=== PATIENT | male | born 1950 | race Caucasian/White ===

== ENCOUNTER 2019-05-25 00:55 | Outpatient (CLI) | payer OTHER, SELFPAY ==
[2019-05-25 09:26] LABS: Hemoglobin A1C 5.8 % (4.5-6.2)
[2019-05-25 09:36] LABS: Bilirubin Negative (Negative); Blood Negative (Negative); Clarity Clear (Clear); Glucose Negative (Negative); Ketones Negative (Negative); Leukocyte Esterase Negative (Negative); Nitrite Negative (Negative); Urobilinogen 0.2 EU/dL (Up TO 0.2); pH 7.5 (5-8)
[2019-05-25 10:10] LABS: ALT 31 U/L (16-63); AST 18 U/L (15-37); Albumin 3.9 g/dL (3.4-5.0); Alkaline Phosphatase 103 U/L (46-116); Anion Gap 8.3 mmol/L (3-11); BUN 16 mg/dL (7-18); Bilirubin, Total 0.6 mg/dL (0.2-1.0); CO2 26.7 mmol/L (21.0-32.0); CREATININE 0.68 mg/dL (0.70-1.30); Calcium 8.7 mg/dL (8.5-10.1); Chloride 106 mmol/L (98-107); Glucose 99 mg/dL (70-100); Potassium 4.5 mmol/L (3.5-5.1); Sodium 141 mmol/L (136-145); TSH 1.98 uIU/mL (0.36-3.74); Total Protein 6.6 g/dL (6.4-8.2); Uric Acid 4.9 mg/dL (3.5-7.2)
[2019-05-25 12:21] LABS: Calculated LDL 104 mg/dL; Cholesterol 173 mg/dL (50-200); HDL Cholesterol 54 mg/dL (40-60); Triglyceride 75 mg/dL (30-150)
[2019-05-25 14:31] LABS: Abs Immature Grans 0.07 k/cumm (0.0-0.09); Absolute Basophil Count 0.04 k/cumm (0.0-0.2); Absolute Eosinophil Count 0.11 k/cumm (0.0-0.7); Absolute Monocyte Count 0.67 k/cumm (0.11-0.7); Absolute Neutrophil Count 3.03 k/cumm (1.2-6.7); Basophils % 0.7; HCT 47.4 % (40.0-50.0); HGB 15.6 g/dL (13.5-17.5); Immature Grans % 1.3; Mean Corp. HGB Concentration 32.9 g/dL (32.0-36.0); Mean Corpuscular Hemoglobin 27.9 pg (27.0-33.0); Mean Corpuscular Volume 84.6 fL (80-95); Mean Platelet Volume 9.8 fL (8.0-11.0); Monocytes % 12.1; Neutrophils % 54.9; Platelet Count 284 x1000/uL (130-400); RBC Distribution Width 13.8 % (11.8-14.1); White Blood Cell Count 5.52 k/cumm (4.4-10.8)
[2019-05-26 12:16] LABS: PSA, Screening 2.2 ng/ml (0-4.5)
[2019-05-30 08:37] LABS: IgA 156 mg/dL (85-499); Interpretation SEE COMMENTS; Tissue Transglutaminase IgA <1.2 U/mL (<4.0)
== END 2019-05-25 01:15 ==
PROVIDERS: PCP Family Medicine; Visit Provider Family Medicine
DX: I10 Essential (primary) hypertension (principal); K52.9 Noninfective gastroenteritis and colitis, unspecified; E03.9 Hypothyroidism, unspecified; N13.8 Other obstructive and reflux uropathy; N40.1 Benign prostatic hyperplasia with lower urinary tract symptoms; E78.00 Pure hypercholesterolemia, unspecified; Z87.39 Personal history of other diseases of the musculoskeletal system and connective tissue; R73.03 Prediabetes; R39.11 Hesitancy of micturition
CPT/HCPCS: 36415; 80053; 80061; 82784; 83516; 84153; 81003; 83036; 84443; 84550; 85025

== ENCOUNTER 2019-05-29 07:00 | Outpatient (CLI) | payer OTHER, SELFPAY ==
[2019-05-31 13:31] LABS: Milk, Processed, IgE <0.35 kU/L
== END 2019-05-29 07:20 ==
PROVIDERS: PCP Family Medicine; Visit Provider Surgery
DX: R19.7 Diarrhea, unspecified (principal)
CPT/HCPCS: 36415; 86003

== ENCOUNTER 2019-06-09 03:02 | Outpatient (CLI) | payer OTHER, SELFPAY ==
--- NOTE | 2019-06-09 08:40 | DI.US_ITS ---
EXAM: US ABDOMEN CLINICAL HISTORY: abdom pain/ gas bloating/ diarrhea,R19.7,R10.9 TECHNIQUE: Ultrasound performed using standard protocol. COMPARISON: No exams were available for comparison FINDINGS: Visualized liver is normal in appearance. No evidence of cholelithiasis or biliary dilatation. Panc reas is unremarkable in appearance. Spleen appears normal. Aorta and IVC are of normal diameter. Kidneys are unremarkable in appearance except for a 5.5 cm in diameter upper pole right renal simple cyst. No hydronephrosis or nephrolithiasis. IMPRESSION: Negative abdominal ultrasound except for incidental right renal cyst which is a simple cyst.
== END 2019-06-09 03:22 ==
PROVIDERS: PCP Family Medicine; Visit Provider Surgery
DX: R10.9 Unspecified abdominal pain (principal); R19.7 Diarrhea, unspecified; R14.0 Abdominal distension (gaseous); N28.1 Cyst of kidney, acquired
CPT/HCPCS: 76700

== ENCOUNTER 2019-06-23 06:50 | Day surgery (SDC) | payer OTHER, SELFPAY ==
--- NOTE | 2019-06-22 19:17 | W.COLOREPORT ---
Date of service: 06/23/19 Time of Service: 10:36 Colonoscopy Report Date of procedure: 06/23/19 Pre-op diagnosis general: screen Post-op diagnosis procedure note: other (polyps and divertic ) Procedure: ce and polypectomy x2- cold Surgeon: Natasha Jarrell Anesthesia proc note operative: GETA Estimated blood loss (mL): 1 Pathology: other Complications: None Disposition: same day Prep: Miralax/Dulcolax Retraction Time: 12 mins Procedure Description: INDICATIONS: The patient is here today at the request of their PCP and is here today for a colonoscopy for CRC screen . Informed consent was obtained, explaining the risks and benefits of the procedure, including but not limited to bleeding, infection, perforation, aspiration, complications from the anesthesia. DESCRIPTION OF PROCEDURE: The patient was brought to the endoscopy suite and placed in left lateral decubitus position. Anesthesia was administered per the Department of Anesthesia, with constant monitoring of all vital signs. Digital rectal exam was performed prior to beginning the procedure and revealed no anal or rectal pathology. There was good sphincter tone. No internal or external hemorrhoids are noted. The previously lubricated Olympus was inserted in the rectum and insufflation was begun. The scope was passed up through the recto-sigmoid valves, through the sigmoid and transverse, down the ascending and the cecum was achieved at 90 cm. Good prep was noted. The scope was then withdrawn. There were no AVM,s. polyps were: One at 70 cm/ascending colon w/ cold biting forcep and one in rectum removed with cold biting forcep. All specimens retrieved, & no bleeding is noted. Patient does have a few small large most diverticuli these are mostly confined to the sigmoid colon but they do extend all the way over to the right side of the colon. There is no signs of active infection the mucosa appears pink and healthy. The vasculature appears normal. The patient tolerated the procedure without complicated and transferred to the recovery room in stable condition. Colonoscopy should be repeated in 5-10 years? time- path pd. A letter will be sent to the pt as to when to repeat the scope. Natasha Jarrell, DO
[2019-06-23 07:37] VITALS: BP 136/83; PULSE 66; RESP 16; TEMP 36.4; O2SAT 96
[2019-06-23] MEDS: Lactated Ringers 1,000 ML 100 ML IV (08:00)
--- NOTE | 2019-06-23 09:51 | SUR.INTRAOP ---
Dr. Jarrell delayed due to post-op ICU patient needing orders and consults.
--- NOTE | 2019-06-23 10:14 | BOWEL_PTH ---
PATIENT: John Perry I LOC: [facility] U#:[id number] AGE/SX: 68/M ROOM: RE06/23/[address]: Natasha Jarrell : 1950 BED: DIS: 06/23/2019 SPEC #: [id number] RECD: 06/23/19 13:06 STATUS: ALEC RE #: [id number] KAITLIN: 06/23/19 10:[address]: Natasha Jarrell DEPT: Surgical Specimen RECD BY: Raegan Lopez ENTERED: 06/23/19 13:08 SP TYPE: Bowel OTHR DR: Linus Waite MD Tissues: 1 - BIOPSY BOWEL 2 - BIOPSY BOWEL Procedures: GROSS AND MICRO LEVEL 4 Comments: [id number]
--- NOTE | 2019-06-23 10:47 | W.PM.DSUDISC ---
Discharge Plan Disposition Patient Disposition: HOME Condition: Good Discharge Details Reason For Visit: CRC screen Attending Provider: Natasha Jarrell Primary Care Provider: Linus Waite Home Meds and New Rx's Prescriptions: No Action levothyroxine 150 mcg tablet 150 mcg PO DAILY RF: 0 tamsulosin [Flomax] 0.4 mg capsule 0.4 mg PO QHS Qty: 30 RF: 11 lisinopril 10 MG tablet 10 mg PO DAILY RF: 0 omeprazole [Prilosec] 20 MG capsule,delayed release(DR/EC) 20 mg PO DAILY RF: 0 Discharge Instructions Instructions: Diverticulosis (GEN), Diverticulosis Diet (GEN) Additional Instructions: Findings:diverticula- follow high fiber diet and avoid straining to move bowels x2 polyps- will send a letter w/ pathology results and when to repeat scope- in approx 3 wks. try lactaid for diary induced diarrhea. no asa/nsaid's x72 hrs b/c of Biopsy. tylenol is ok. Follow up: as needed Please call if you develop: fevers >101.5 Nausea or Vomiting Abdominal pain that is not transient DAY SURGERY UNIT POST COLONOSCOPY INSTRUCTIONS 1. Because there will be medication in your system for the next 24 hours, you may feel a little sleepy. Your coordination will be affected. Therefore: a. Do not drive or operate dangerous equipment for 24 hours. b. Do not drink alcohol beverages for 24 hours (not even beer). c. Plan to go home and rest for the day. 2. Generally there are no restrictions on your activity after a day or so has gone by, but you may feel a bit fatigued for a few days. 3 After you arrive home you may have a light meal and return to a normal diet as you can tolerate it without feeling sick to your stomach. 4. After surgery, you may feel pain or discomfort. This should be only transient, but if it persists please contact your doctor. 5. If there are any questions regarding the findings of your procedure, please feel free to contact your doctor. 6. If you are unable to contact your doctor with a problem, contact the hospital at [phone]. 7. Continue all your regular medications unless directed otherwise. I understand the above instructions and have no questions. Signature of Patient or Responsible Adult Escort Date/Time Name of Responsible Adult Escort Signature of Nurse Date/Time Activity:: no lifting over 20#/strenuous activity x 24hrs Diet:: small light meals x 24 hrs Discharge Orders Discharge Orders: Discharge Order (Routine); Ordered 06/22/19 Ordered By: Natasha Jarrell DS: Diagnosis Discharge Diagnosis (1) Adenomatous polyps: Status: Acute (2) Diverticula of colon: Status: Acute
[2019-06-23 11:00] VITALS: BP 134/84; PULSE 64; RESP 16; TEMP 36.2; O2SAT 95
== END 2019-06-23 11:29 | disposition home or self-care (01) ==
PROVIDERS: PCP Family Medicine; Visit Provider Surgery
PROC: 0DJD8ZZ Inspection of Lower Intestinal Tract, Via Natural or Artificial Opening Endoscopic (ICD-10-PCS; CPT 45378; principal; 2019-06-23 08:30)
DX: R19.4 Change in bowel habit (principal); Z86.010 Personal history of colon polyps; G47.33 Obstructive sleep apnea (adult) (pediatric); D12.8 Benign neoplasm of rectum; D12.2 Benign neoplasm of ascending colon; K57.30 Diverticulosis of large intestine without perforation or abscess without bleeding
CPT/HCPCS: 45380; 88305

== ENCOUNTER 2019-07-25 09:54 | Day surgery (SDC) | payer OTHER, SELFPAY ==
[2019-07-25 10:13] VITALS: BP 142/94; PULSE 67; RESP 16; TEMP 36.4; O2SAT 94
[2019-07-25] MEDS: Lidocaine 2% Multi-Dose 50 ML VIAL (11:21)
--- NOTE | 2019-07-25 11:30 | PDOC.DSDIS_ITS ---
Discharge Plan Disposition Patient Disposition: HOME Condition: Good Discharge Details Reason For Visit: RMF Trigger Attending Provider: David Lopez Primary Care Provider: Linus Waite Home Meds and New Rx's Prescriptions: New hydrocodone-acetaminophen 5-325 mg tablet 1 tab PO Q6H PRN (Reason: pain) Qty: 7 RF: 0 No Action tamsulosin [Flomax] 0.4 mg capsule 0.4 mg PO QHS Qty: 30 RF: 11 levothyroxine 150 mcg tablet 150 mcg PO DAILY Qty: 90 RF: 3 lisinopril 10 mg tablet 10 mg PO DAILY Qty: 90 RF: 3 omeprazole 20 mg capsule,delayed release(DR/EC) 20 mg PO DAILY Qty: 90 RF: 3 Discharge Instructions Additional Instructions: Bend and straighten fingers R hand 10 times/hour when awake. to prevent swelling. Keep dressings clean and dry for 48 hours. After 48 hours, remove dressings. May then shower or bathe and get incision wet. Leave incision uncovered when it is dry and sealed. Follow up with in 2 weeks. Referrals: David Lopez MD [ [facility] STAFF PHYSICIAN] - (f/u in 2 weeks.) Activity:: Activity as Tolerated Remove Dressings/Wound Care:: 48 hours Shower/Bathe:: 48 hours Diet:: As Tolerated Discharge Orders Discharge Orders: Discharge Order (Routine); Ordered 07/25/19 Ordered By: David Lopez DS: Diagnosis Discharge Diagnosis (1) Trigger finger (acquired): Status: Acute
--- NOTE | 2019-07-26 09:23 | ROE_ITS ---
DATE OF PROCEDURE July 25, 2019 PREOPERATIVE DIAGNOSIS Trigger right middle finger. POSTOPERATIVE DIAGNOSIS Trigger right middle finger. PROCEDURE Tendon sheath incision for trigger finger release, right middle finger. ANESTHESIA Local infiltration 2% Xylocaine solution and 0.5% Marcaine with epinephrine solution. SURGEON David Lopez M.D. INDICATIONS This is a 68-year-old white male with painful locking and catching of his right middle finger. This h as been present for several months without resolution. It is quite painful for him. I recommended tri gger finger release to alleviate his symptoms and restore good function to his right middle finger. The risk and complications of the procedure were explained to the patient in detail preoperatively. PROCEDURE The patient was taken to the Operating Room on 07/25/2019, where he was placed supine on the operatin g table. The right hand, wrist and distal forearm were prepped and draped free in usual sterile fash ion. I infiltrated over the proximal delta of the flexor sheath of the right middle finger with 2% X ylocaine solution. I then made a transverse incision about 2 cm long over the proximal delta of the flexor sheath of the right middle finger. The incision was positioned 5 mm distal to the distal donahue r flexion crease. The incision was carried down through the skin to the subcu. Blunt tip Littler scis sors were the used to mobilize soft tissue away from the flexor sheath. Retractors were inserted. Und er direct vision, I incised the thickened proximal delta of the flexor sheath. I then used Littler s cissors to complete the tendon sheath incision proximally and distally. When I thought I had complete d the full release of the proximal delta, I asked the patient to actually flex and extend his right middle finger. He is now able to flex and extend his right middle finger fully without any triggering or catching. The wound was irrigated with saline solution. The wound margins were infiltrated with 0 .5% Marcaine with epinephrine solution. Hemostasis was obtained with simple direct pressure. The skin edges were approximated with two interrupted #4-0 Nylon sutures. The wound was dressed with Xeroform gauze, sterile gauze, 4x4s and wrapped with a 2-inch cling bandage for a light pressure dressing. Th e patient tolerated the procedure well and was discharged to the Day Surgery Unit in good condition. The patient was discharged home from Day Surgery Unit with instructions to keep his dressing clean an d dry for 48 hours. He is encouraged to flex and extend the fingers of his right hand 10 times an yony r while awake to prevent swelling and decreased discomfort. After 48 hours, he may remove the dressin gs, shower, bathe and get the incision wet. He can leave the incision uncovered when the incision is dry and sealed. He will take Tylenol or ibuprofen for mild pain. He is given a prescription for break through pain of hydrocodone with APAP 5/325, 1 tablet every 6 hours if needed. He should followup tr Lopez in two weeks for suture removal.
== END 2019-07-25 11:55 | disposition home or self-care (01) ==
PROVIDERS: PCP Family Medicine; Visit Provider Orthopaedic Surgery
PROC: (CPT 26055; principal; 2019-07-25 11:15)
DX: M65.331 Trigger finger, right middle finger (principal)
CPT/HCPCS: 26055

== ENCOUNTER 2019-12-20 14:10 | Outpatient (CLI) | payer OTHER, SELFPAY ==
--- NOTE | 2019-12-20 14:08 | DI.RAD_ITS ---
EXAM: XR SHOULDER RT COMPLETE 2+V CLINICAL HISTORY: SHOULDER PAIN R. TECHNIQUE: 2D digital imaging was performed. COMPARISON: No exams were available for comparison FINDINGS: BONES: No acute fracture is present. No bony destructive lesion is seen. Mild spurring is seen of the glenoid. JOINTS: No dislocation present. Mild hypertrophic changes are seen at the acromioclavicular joint. SOFT TISSUE: Normal. IMPRESSION: Degenerative changes of the right shoulder. DATA REPOSITORY: RADIATION DOSE DELIVERED:
== END 2019-12-20 14:30 ==
PROVIDERS: PCP Family Medicine; Referring Provider Family Medicine; Visit Provider Student in an Organized Health Care Education/Training Program
DX: M25.511 Pain in right shoulder (principal); M19.011 Primary osteoarthritis, right shoulder
CPT/HCPCS: 73030

== ENCOUNTER 2020-01-04 11:47 | Outpatient (CLI) | payer OTHER, SELFPAY ==
--- NOTE | 2020-01-04 14:30 | DI.MRI_ITS ---
EXAM: MR UPPER JOINT RT WO CLINICAL HISTORY: RIGHT SHOULDER PAIN M25.511, BURSITIS RT SHOULDER M75.51, S46.011A STRAIN. TECHNIQUE: Multiplanar multisequence MRI was performed. COMPARISON: CR XR SHOULDER RT COMPLETE 2+V from 12/20/2019 FINDINGS: MR examination of the shoulder was performed according to the usual protocol. No significant shoulder joint effusion seen. Bones: There are prominent hypertrophic changes at the acromioclavicular joint with signal abnormalit ies of the adjacent bones. There is abnormal signal adjacent to the supraspinatus insertion in the greater tuberosity of the hum erus with cystic areas and areas of non-cystic increased signal also seen. Acromioclavicular hypertrophic changes appear to impinge on superior aspect of supraspinatus tendon a nd myotendinous junction region with significant deformity of the superior supraspinatus contour. Labrum: Some labral fraying may be present anteriorly. Otherwise grossly intact by non contrast crit eria. Rotator cuff: As noted above, there is evidence of impingement on superior aspect of supraspinatus me chanism by AC joint hypertrophy. There is mild narrowing of the acromial outlet. There are areas of signal loss in supraspinatus tendon probably representing calcification as present on plain film of December 19. There are superior surface and inferior surface partial-thickness tears of supraspinatus t endon adjacent to and at the footprint on the greater tuberosity of the humerus. A small focal area o f full-thickness tearing also appears to be present in the mid to anterior footprint without evidence of significant retraction. Abnormal signal in subscapularis tendon consistent with tendinosis, small Romy attachment partial-thi ckness intrasubstance tear may be present as seen on axial images. Infraspinatus tendon shows mild signal changes distally consistent with tendinosis, no tear of infra spinatus or teres minor. Biceps tendon: Biceps anchor shows mildly abnormal signal. No evidence of a biceps tendon tear or di splacement from the bicipital groove. IMPRESSION: Marked supraspinatus impingement from prominent AC joint hypertrophic changes, mixed partial thicknes s/full-thickness non retracted distal supraspinatus tear, please see above discussion. Subscapularis tendinosis and probable Romy attachment partial-thickness tear. Additional minor findings as described above. DATA REPOSITORY:
== END 2020-01-04 12:07 ==
PROVIDERS: PCP Family Medicine; Visit Provider Student in an Organized Health Care Education/Training Program
DX: M25.511 Pain in right shoulder (principal); M75.51 Bursitis of right shoulder; M75.41 Impingement syndrome of right shoulder; S46.011A Strain of muscle(s) and tendon(s) of the rotator cuff of right shoulder, initial encounter; M75.81 Other shoulder lesions, right shoulder
CPT/HCPCS: 73221

== ENCOUNTER 2020-06-21 16:54 | Outpatient (CLI) | payer OTHER, SELFPAY ==
[2020-06-21 13:55] LABS: ALT 38 U/L (16-63); AST 23 U/L (15-37); Albumin 4.4 g/dL (3.4-5.0); Alkaline Phosphatase 98 U/L (46-116); Anion Gap 4.9 mmol/L (3-11); BUN 17 mg/dL (7-18); Bilirubin, Total 0.7 mg/dL (0.2-1.0); CO2 30.1 mmol/L (21.0-32.0); CREATININE 0.84 mg/dL (0.70-1.30); Calcium 9.3 mg/dL (8.5-10.1); Chloride 104 mmol/L (98-107); Glucose 91 mg/dL (74-106); Potassium 4.5 mmol/L (3.5-5.1); Sodium 139 mmol/L (136-145); TSH 8.15 uIU/mL (0.36-3.74); Total Protein 7.2 g/dL (6.4-8.2)
== END 2020-06-21 17:14 ==
PROVIDERS: PCP Family Medicine; Visit Provider Family Medicine
DX: I10 Essential (primary) hypertension (principal); E03.9 Hypothyroidism, unspecified
CPT/HCPCS: 36415; 80053; 84443

== ENCOUNTER 2020-07-12 20:50 | Outpatient (REF) | payer OTHER, SELFPAY | END 2020-07-12 21:10 | LOC: LBN 20:50 | PROVIDERS: PCP Family Medicine; Visit Provider Physician Assistant | DX: N39.0 Urinary tract infection, site not specified (principal) | CPT/HCPCS: 87086 ==

== ENCOUNTER 2020-08-24 03:04 | Outpatient (CLI) | payer OTHER, SELFPAY ==
--- NOTE | 2020-08-24 13:30 | DI.CT_ITS ---
EXAM: CT LUMBAR SPINE SI JOINTS WO CLINICAL HISTORY: Acute back pain lasting 3 months,M54.5. TECHNIQUE: Imaging Protocol: Axial computed tomography images with coronal and sagittal reformatted images were created and reviewed COMPARISON: CT CTA THORAX from 06/15/2015 FINDINGS: Bones: The last intervertebral disc space is designated the L5/S1 level for the numbering purpose of this examination. The vertebral body heights are well maintained. Grade 1 pseudo spondylolisthesis o f L4 on L5. No fracture is seen. There is disc space narrowing at L5-S1. Vacuum discs are seen at L2 -L3 and L5-S1. There are degenerative changes of the facets from L3-4 through L5-S1. Endplate osteo phytes are seen throughout the lumbar spine. T12-L1: No disc herniations or bulges are present. No significant central spinal canal or neural for aminal stenosis. L1-2: No disc herniations or bulges are present. No significant central spinal canal or neural doug inal stenosis. L2-3: There is prominence of the osteophyte disc complex. This in conjunction with the facet arthrop athy causes mild to moderate central spinal canal stenosis. Mild narrowing of the neural foramen is s een bilaterally. L3-4: There is prominence of the osteophyte disc complex. This, in conjunction with facet arthropath y, causes moderately severe central spinal canal stenosis. [id number] bilateral neural foramina l stenosis is present. L4-5: There is anterolisthesis and hypertrophic changes of the facets which cause marked central spi nal canal stenosis. Bilateral neural foraminal stenosis is present. L5-S1: There is a mild diffuse disc bulge. No significant central spinal canal stenosis is present. Marked bilateral neural foraminal stenosis is present. Soft Tissues: The visualized SI joints and sacrum are will maintained. The paraspinal soft tissues a re unremarkable. A cyst is seen in the superior pole of the right kidney which was present on the elmo or examination. IMPRESSION: Multilevel degenerative changes in the lumbar spine causing central spinal canal and neural foraminal stenosis as described above. The findings are most marked from L3-4 through L5-S1. RADIATION DOSE DELIVERED: 654.85mGy.cm Total DLP 654.85mGy.cm Total DLP DATA REPOSITORY: All CT scans at this facility are submitted to the National Radiology Data Registry (NRDR) Dose Index Registry (DIR) with the [employer] ([employer]). RADIATION OPTIMIZATION: All CT scans at this facility use at least one of these dose optimization te chniques: automated exposure control; mA and/or kV adjustment per patient size (includes targeted exa ms where dose is matched to clinical indication); or iterative reconstruction.
== END 2020-08-24 03:24 ==
PROVIDERS: PCP Family Medicine; Visit Provider Nurse Practitioner Family
DX: M47.816 Spondylosis without myelopathy or radiculopathy, lumbar region (principal); M48.061 Spinal stenosis, lumbar region without neurogenic claudication; M48.07 Spinal stenosis, lumbosacral region
CPT/HCPCS: 72131

== ENCOUNTER 2020-09-05 03:21 | Outpatient (CLI) | payer OTHER, SELFPAY ==
[2020-09-06 14:04] LABS: COVID-19 RT-PCR UVMMC Result Negative (Negative)
== END 2020-09-05 03:22 | disposition home or self-care (01) ==
PROVIDERS: PCP Family Medicine; Visit Provider Family Medicine
DX: Z20.822 Contact with and (suspected) exposure to COVID-19 (principal)
CPT/HCPCS: U0003

== ENCOUNTER 2020-09-24 21:16 | Outpatient (REF) | payer OTHER, SELFPAY ==
[2020-09-24 22:20] LABS: PSA, Screening 1.5 ng/mL (0.0-4.5)
== END 2020-09-24 21:17 | disposition home or self-care (01) ==
LOC: LBN 21:16
PROVIDERS: PCP Family Medicine; Visit Provider Surgery
DX: N13.8 Other obstructive and reflux uropathy (principal); N40.1 Benign prostatic hyperplasia with lower urinary tract symptoms; Z12.5 Encounter for screening for malignant neoplasm of prostate
CPT/HCPCS: 84153

== ENCOUNTER 2021-03-25 16:06 | Outpatient (REF) | payer OTHER, SELFPAY ==
[2021-03-25 21:45] LABS: Anion Gap 10.2 mmol/L (3-11); BUN 18 mg/dL (7-18); CO2 25.8 mmol/L (21.0-32.0); CREATININE 0.7 mg/dL (0.70-1.30); Chloride 105 mmol/L (98-107); Glucose 87 mg/dL (74-106); Sodium 141 mmol/L (136-145)
== END 2021-03-25 16:07 | disposition home or self-care (01) ==
LOC: NCHCN 16:06
PROVIDERS: PCP Nurse Practitioner Family; Visit Provider Nurse Practitioner Family
DX: M54.5 Low back pain (principal); M48.061 Spinal stenosis, lumbar region without neurogenic claudication; I10 Essential (primary) hypertension
CPT/HCPCS: 80048

== ENCOUNTER 2021-03-26 12:27 | Outpatient (CLI) | payer OTHER, SELFPAY ==
--- NOTE | 2021-03-26 12:19 | DI.MRI_ITS ---
Exam(s) MR LUMBAR SPINE WO EXAM: MR LUMBAR SPINE WO CLINICAL HISTORY: lumbar stenosis M48.061 SPINAL STENOSIS TECHNIQUE: Multiplanar multisequence MRI of the Lumbar Spine was performed. CONTRAST MATERIAL: IV Contrast: mL of Dotarem contrast administered. COMPARISON: CR XR SHOULDER RT COMPLETE 2+V from 12/20/[address] LUMBAR SPINE SI JOINTS WO from 08/24/[address] LUMBAR SPINE SI JOINTS WO from 08/24/2020 FINDINGS: Bones: The last intervertebral disc space is designated the L5/S1 level for the numbering purpose of this examination. The vertebral body heights are well maintained. Alignment is satisfactory. The mar row signal characteristics are unremarkable. Cord: The conus tip ends at the T12 level. It is of normal size and signal intensity. T12-L1: No disc herniations or bulges are present. L1-2: No disc herniations or bulges are present. L2-3: Slight loss of disc height. Endplate osteophytes and broad-based disc bulging facet degenerati ve changes combine with the disc bulging to produce a moderate to severe degree of central canal sten osis as well as bilateral neural foraminal narrowing. L3-4: endplate osteophytes and broad-based disc bulging, greater on the right. Facet degenerative c hanges and ligamentous hypertrophy combine to produce severe central canal stenosis and severe bilate ral neural foraminal narrowing. L4-5: Mild disc bulging and small disc osteophytes. Prominent facet joint degenerative changes and l igamentous hypertrophy, right causing severe central canal stenosis as well as severe bilateral neura l foraminal narrowing. There is mild spondylo listhesis at this level secondary to the prominent face t joint degenerative changes. L5-S1: There is loss of disc height at L5-S1, endplate osteophytes and mild disc bulging. There are prominent facet degenerative changes causing severe bilateral neural foraminal narrowing. There is n o central canal stenosis at this level. Soft tissues: The visualized SI joints and sacrum are well maintained. The paraspinal soft tissues ar e unremarkable. A cyst is noted at the upper pole of the right kidney. IMPRESSION: Severe central canal stenosis and bilateral neural foraminal narrowing L3-4 and L4-5 secondary to a c ombination of prominent disc bulging and prominent facet joint degenerative changes. Degenerative zeenat nges are seen to a lesser extent at the remaining levels.. DATA REPOSITORY:
== END 2021-03-26 12:47 ==
PROVIDERS: PCP Nurse Practitioner Family; Visit Provider Nurse Practitioner Family
DX: M48.061 Spinal stenosis, lumbar region without neurogenic claudication (principal); M25.78 Osteophyte, vertebrae; M51.27 Other intervertebral disc displacement, lumbosacral region; M51.26 Other intervertebral disc displacement, lumbar region
CPT/HCPCS: 72148

== ENCOUNTER 2021-05-21 09:13 | Outpatient (CLI) | payer OTHER, SELFPAY ==
[2021-05-21 12:45] LABS: TSH 0.33 uIU/mL (0.36-3.74)
== END 2021-05-21 09:14 | disposition home or self-care (01) ==
LOC: LOS 09:21
PROVIDERS: PCP Nurse Practitioner Family; Visit Provider Family Medicine
DX: E03.9 Hypothyroidism, unspecified (principal)
CPT/HCPCS: 36415; 84443

== ENCOUNTER 2021-07-19 16:34 | Outpatient (REF) | payer OTHER, SELFPAY ==
[2021-07-19 18:50] LABS: Abs Immature Grans 0.07 10^3/uL (0.0-0.06); Absolute Basophil Count 0.05 10^3/uL (0.0-0.2); Absolute Eosinophil Count 0.15 10^3/uL (0.0-0.7); Absolute Lymphocyte Count 1.61 10^3/uL (1.2-3.4); Absolute Monocyte Count 0.73 10^3/uL (0.1-0.8); Absolute Neutrophil Count 3.37 10^3/uL (1.2-6.7); Basophils % 0.8; Eosinophils % 2.5; HCT 44.5 % (40.0-50.0); HGB 14.6 g/dL (13.5-17.5); Immature Grans % 1.2; Lymphocytes % 26.9; MCH 28.7 pg (27.0-33.0); MCHC 32.8 % (32.0-36.0); MCV 87.6 fL (80-95); MPV 9.7 fL (8.0-11.0); Monocytes % 12.2; Neutrophils % 56.4; Nucleated RBC 0 %; Platelet Count 273 10^3/uL (130-400); RBC 5.08 10^6/uL (4.36-5.78); RDW 13.1 % (11.8-14.1); RDW-SD 42.1 fL; WBC 5.98 10^3/uL (4.4-10.8)
[2021-07-19 18:52] LABS: Anion Gap 7.6 mmol/L (3-11); BUN 21 mg/dL (7-18); CO2 27.4 mmol/L (21.0-32.0); CREATININE 0.6 mg/dL (0.70-1.30); Calcium 8.6 mg/dL (8.5-10.1); Chloride 106 mmol/L (98-107); Glucose 95 mg/dL (74-106); Potassium 4.2 mmol/L (3.5-5.1); Sodium 141 mmol/L (136-145)
== END 2021-07-19 16:35 | disposition home or self-care (01) ==
LOC: LBN 16:34
PROVIDERS: PCP Nurse Practitioner Family; Visit Provider Nurse Practitioner Family
DX: I10 Essential (primary) hypertension (principal); E03.9 Hypothyroidism, unspecified; M43.16 Spondylolisthesis, lumbar region; Z01.818 Encounter for other preprocedural examination
CPT/HCPCS: 80048; 85025

== ENCOUNTER 2022-06-27 01:10 | Outpatient (CLI) | payer OTHER, SELFPAY ==
[2022-06-27 10:48] LABS: CREATININE 0.9 mg/dL (0.70-1.30); Estimated GFR 92.45 (mL/min/1.73m2); TSH (W/Ref FT4) 1.36 uIU/mL (0.36-3.74)
[2022-06-27 18:45] LABS: PSA, Screening 1.6 ng/mL (<=4.5)
== END 2022-06-27 01:11 | disposition home or self-care (01) ==
LOC: LOS 01:10
PROVIDERS: PCP Nurse Practitioner Family; Visit Provider Nurse Practitioner Family
DX: E03.9 Hypothyroidism, unspecified (principal); I10 Essential (primary) hypertension; N13.8 Other obstructive and reflux uropathy; N40.1 Benign prostatic hyperplasia with lower urinary tract symptoms; Z12.5 Encounter for screening for malignant neoplasm of prostate
CPT/HCPCS: 36415; 84153; 82565; 84132; 84443

== ENCOUNTER 2022-10-29 12:37 | Emergency (ER) | payer OTHER, SELFPAY ==
[2022-10-29 12:41] VITALS: BP 189/103; PULSE 82; RESP 18; O2SAT 95
[2022-10-29 12:47] VITALS: TEMP 36.9
--- NOTE | 2022-10-29 13:00 | DI.RAD_ITS ---
Exam(s) XR WRIST RT COMPLETE EXAM: XR WRIST RT COMPLETE CLINICAL HISTORY: pain. TECHNIQUE: 2D digital imaging was performed of the right wrist. Three views were obtained. PA, lat eral and oblique views were obtained. COMPARISON: No exams were available for comparison FINDINGS: BONES: No acute fracture is present. No bony destructive lesion is seen. JOINTS: The carpal bones are normally aligned. Degenerative changes are seen in the wrist with hypert rophic changes seen at the distal radial ulnar joint and the 1st CMC joint. SOFT TISSUE: Atherosclerosis is present. IMPRESSION: No acute fracture or dislocation. DATA REPOSITORY: RADIATION DOSE DELIVERED:
--- NOTE | 2022-10-29 13:15 | ED.GENADUL_ITS ---
Discharge Plan Disposition Patient Disposition: Home Discharge Details Clinical Impression: Acute carpal tunnel syndrome of right wrist Primary Care Provider: Sb Willett ED Provider: Keaton Shabazz Home Meds and New Rx's Prescriptions: Continued acetaminophen 500 mg capsule 1,000 mg PO Q6H PRN (Reason: fever) Qty: 60 0RF fluticasone propionate [Flonase Allergy Relief] 50 mcg/actuation spray, suspension 1 spray intranasal DAILY Qty: 9.9 3RF Rx Instructions: administer into each nostril oxybutynin chloride 5 mg tablet extended release 24hr 5 mg PO DAILY Qty: 90 3RF lisinopril 10 mg tablet 10 mg PO DAILY Qty: 90 3RF levothyroxine 150 mcg tablet 150 mcg PO DAILY Qty: 90 3RF omeprazole 20 mg capsule,delayed release(DR/EC) 20 mg PO DAILY Qty: 90 3RF Changed ibuprofen 600 mg tablet 600 mg PO TID PRN (Reason: pain) Qty: 30 0RF Discontinued lidocaine 5 % adhesive patch,medicated 1 patch topical DAILY Qty: 30 3RF Patient Comments: not taking Rx Instructions: leave on most painful area for up to 12 hrs Discharge Instructions Instructions: Arthralgia (ED) Additional Instructions: Please take ibuprofen as needed for discomfort and you may also continue with your acetaminophen. Please wear the wrist brace while awake and follow-up with orthopedist for reassessment and further discussion of treatment. If you develop any new or significant worsening of symptoms please return to the emergency department for recheck. Stand Alone Forms: Work Release Referrals: [facility] [Provider Group] (Please call the office tomorrow for arrangement of follow-up appointment) Discharge Data Discharge Date/Time-TO BE ENTERED AT DEPARTURE: 10/29/22 14:29 Medical Decision Making Patient presenting to the emergency department for chief complaint of wrist and hand weakness and pain. 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 Patient denies any other injury or trauma denies all other complaints. 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 We will give patient ibuprofen, perform radiological imaging of the wrist and plan on referral to orthopedics for suspected carpal tunnel syndrome. Reviewed radiological imaging and no acute findings were noted. Patient was reassessed and did state that wrist brace along with ibuprofen did help with symptoms. Patient was placed upon orthopedic follow-up list along with light duty pending orthopedic follow-up. After discussion of diagnosis and plan of care patient has no further needs, questions, or concerns and states clear understanding to return to the emergency department for any worsening symptoms. This documentation was generated using [employer] system, please disregard any oddities of phrase or misspellings. Imaging Data Radiologic Study: Attestation: I personally reviewed and interpreted this imaging study as follows: Imaging: X-Ray Radiologist's impression: Exam(s) XR WRIST RT COMPLETE EXAM: XR WRIST RT COMPLETE CLINICAL HISTORY: pain. TECHNIQUE: 2D digital imaging was performed of the right wrist. Three views were obtained. PA, lateral and oblique views were obtained. COMPARISON: No exams were available for comparison FINDINGS: BONES: No acute fracture is present. No bony destructive lesion is seen. JOINTS: The carpal bones are normally aligned. Degenerative changes are seen in the wrist with hypertrophic changes seen at the distal radial ulnar joint and the 1st CMC joint. SOFT TISSUE: Atherosclerosis is present. IMPRESSION: No acute fracture or dislocation. HPI General Mode of arrival: ambulatory . Date/Time Provider Initiated Documentation: 10/29/22 12:38 . Limitations to Documentation: no limitations . Information obtained by: patient and RN notes reviewed . History of Present Illness 71 year old M presents to the emergency department with the chief complaint of Right hand and wrist pain, with intensity rated at 8. Quality is described as aching and sharp, and is localized to the right and upper extremity. Patient reports no radiation. Patient started experiencing this hour(s) (3) and it has been constant. No relieving factors improve symptom(s), Movement worsens symptoms . Patient notes no other symptoms.. Patient did receive the following treatments prior to arrival, none Related Data Home Medications Medication Instructions Recorded Confirmed acetaminophen 500 mg capsule 1,000 mg PO Q6H PRN fever #60 caps 03/25/21 10/29/22 oxybutynin chloride 5 mg 5 mg PO DAILY #90 tabs 04/08/22 10/29/22 tablet,extended release 24 hr fluticasone propionate 50 1 spray intranasal DAILY #9.9 mL 06/18/22 10/29/22 mcg/actuation nasal spray,suspension (Flonase Allergy Relief) lisinopril 10 mg tablet 10 mg PO DAILY #90 tab-caps 07/01/22 10/29/22 levothyroxine 150 mcg tablet 150 mcg PO DAILY #90 tabs 07/02/22 10/29/22 omeprazole 20 mg capsule,delayed 20 mg PO DAILY #90 tab-caps 07/02/22 10/29/22 release ibuprofen 600 mg tablet 600 mg PO TID PRN pain #30 tabs 10/29/22 Previous Rx's Medication Instructions Recorded acetaminophen 500 mg capsule 1,000 mg PO Q6H PRN fever #60 caps 03/25/21 oxybutynin chloride 5 mg 5 mg PO DAILY #90 tabs 04/08/22 tablet,extended release 24 hr fluticasone propionate 50 1 spray intranasal DAILY #9.9 mL 06/18/22 mcg/actuation nasal spray,suspension (Flonase Allergy Relief) lisinopril 10 mg tablet 10 mg PO DAILY #90 tab-caps 07/01/22 levothyroxine 150 mcg tablet 150 mcg PO DAILY #90 tabs 07/02/22 omeprazole 20 mg capsule,delayed 20 mg PO DAILY #90 tab-caps 07/02/22 release ibuprofen 600 mg tablet 600 mg PO TID PRN pain #30 tabs 10/29/22 Allergies Allergy/AdvReac Type Severity Reaction Status Date / Time allopurinol AdvReac dizziness, Verified 10/29/22 12:46 GI upset General Stated Complaint: Orthopedic YUKO: 3 Review of Systems Constitutional Constitutional: Denies body ache(s), Denies fever(s) and Denies headache(s) Eyes Eyes: Denies change in vision ENT Ears, Nose, Mouth, and Throat: Denies dizziness and Denies headache(s) Cardiovascular Cardiovascular: Denies chest pain Gastrointestinal Gastrointestinal: Denies nausea and Denies vomiting Musculoskeletal Musculoskeletal: Reports as per HPI, Reports arthralgias, Reports muscle weakness, Denies numbness, Reports radiating pain into limb and Denies tingling Integumentary/Breasts Skin/Breast: Denies erythema and Denies rash Neurologic Neurologic: Reports as per HPI, Denies dizziness, Denies headache(s), Denies numbness, Denies sensory deficit and Denies tingling PFSH All Active Problems (Updated 10/29/22 @ 13:30 by Keaton Shabazz NP) Acute carpal tunnel syndrome of right wrist (Acute) Hypothyroidism (Chronic) Erectile disorder, acquired, generalized, moderate (Acute) Essential hypertension (Acute) BPH w urinary obs/LUTS (Acute) Osteoarthritis of hands, bilateral (Acute) History of gout (Acute) Medical History Adenomatous polyps Diverticula of colon Finger amputation, traumatic Work accident. History of colonic polyps Hx of clark R hands Hypogonadism, testicular Osteophyte L foot, excision Septic prepatellar bursitis of right knee Trigger finger (acquired) Surgically repaired in 2018. Surgical History History of arthroscopic knee surgery leftl History of colonoscopy History of surgical amputation of finger of left hand Ring finger Family History Mother Heart disease Father , AGE 89 Hypertension Pancreatic cancer Bladder cancer Hypothyroidism Sister No problems noted. Sister No problems noted. Brother No problems noted. Daughter No problems noted. Daughter No problems noted. Brother No problems noted. Son No problems noted. Social History Smoking/Tobacco Use Status: Former Tobacco Use tobacco type: cigarettes and pipe Quit Date: 08/03/79 Tobacco: How many years used: 10 Second Hand Exposure: Yes Smoking risk assessment performed?: Yes Alcohol Intake: current Alcohol Intake frequency: a few times a month Alcohol type: hard liquor Drug use: Never Details: alcohol: t-5, one beer Household members: spouse Housing: house Communication Needs: None Pets and animals: Yes Pets and animals: dog(s), horse(s) and farm animals Sexually active: No Do you think of yourself as: straight/heterosexual Current gender identity: male What is your relationship status?: How often do you talk on the phone with friends or family?: once per week How often do you get together with friends or relatives?: once per week How often do you attend methodist or pentecostal services?: 1-3 times per year Do you belong to any clubs or organized social groups?: no Panel score (0-1 are the most socially isolated patients): 1 What type of physical activity do you participate in: walking Duration: 45-60 minutes/day Frequency: 5-6 times per week Nicole/Latter Day: No preference Special nicole needs: No Seatbelt use: always 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 Do you feel safe at home: Yes Do you feel safe in your relationship?: Yes Victim of physical abuse: No Victim of emotional abuse: No Victim of sexual abuse: No Would you like helpful sources: No Exam Const General: cooperative, no acute distress and not ill appearing Orientation: alert, awake and oriented x3 Resp Effort & Inspection: normal respiratory effort, able to speak in complete sentences and no respiratory distress Skin General skin exam: no rashes or lesions noted Neuro General: patient alert, patient awake, patient oriented x3, gait normal, tone normal, moves all extremities, normal light touch, pain and propioception and no focal motor deficits Cognition: normal cognition Speech: speech normal Motor: muscle tone normal throughout and no pronator drift Sensory Exam: no sensory deficits noted Extrem Right upper extremity: elbow/forearm Details: normal to inspection, tenderness a nd normal ROM; no swelling, wrist Details: tenderness Location: of the volar wrist, abnormal ROM Details: pain with active ROM during and pain with passive ROM during, other (Positive Tinel and Phalen's) and radial pulse present and hand Details: normal capillary refill, neuromotor exam normal, neurosensory exam normal, tendon exam normal and normal ROM of fingers; no tenderness Course Vital Signs Vital signs: Vital Signs Pulse 82 10/29/22 12:41 Respiratory Rate 18 10/29/22 12:41 Blood Pressure 189/103 H 10/29/22 12:41 Pulse Oximetry 95 10/29/22 12:41 Temperature 36.9 C 10/29/22 12:47 Temperature Source Oral 10/29/22 12:47 Pulse 82 10/29/22 12:41 Respiratory Rate 18 10/29/22 12:41 Respiratory Effort Normal, Non-Labored 10/29/22 12:42 Blood Pressure 189/103 H 10/29/22 12:41 Pulse Oximetry 95 10/29/22 12:41 Oxygen Delivery Method Room Air 10/29/22 12:41 Oxygen Flow Rate 0 10/29/22 12:41
[2022-10-29] MEDS: Ibuprofen 600 MG TAB PO (13:20)
== END 2022-10-29 14:29 | disposition home or self-care (01) ==
PROVIDERS: Emergency Provider Nurse Practitioner Family; PCP Nurse Practitioner Family
DX: G56.01 Carpal tunnel syndrome, right upper limb (principal)
CPT/HCPCS: 99283; 73110

== ENCOUNTER 2022-11-14 08:43 | Outpatient (CLI) | payer OTHER, SELFPAY ==
[2022-11-14 09:35] LABS: Uric Acid 5.7 mg/dL (3.5-7.2)
== END 2022-11-14 08:44 | disposition home or self-care (01) ==
LOC: LBO 08:45
PROVIDERS: PCP Nurse Practitioner Family; Visit Provider Nurse Practitioner Family
DX: M10.9 Gout, unspecified (principal)
CPT/HCPCS: 36415; 84550

== ENCOUNTER 2023-04-23 18:37 | Outpatient (REF) | payer OTHER, SELFPAY ==
[2023-04-23 20:54] LABS: Abs Immature Grans 0.04 10^3/uL (0.0-0.06); Absolute Basophil Count 0.06 10^3/uL (0.0-0.2); Absolute Eosinophil Count 0.18 10^3/uL (0.0-0.7); Absolute Lymphocyte Count 1.12 10^3/uL (1.2-3.4); Absolute Monocyte Count 0.89 10^3/uL (0.1-0.8); Absolute Neutrophil Count 3.85 10^3/uL (1.2-6.7); Eosinophils % 2.9; HCT 44.1 % (40.0-50.0); Immature Grans % 0.7; Lymphocytes % 18.2; MCH 28.5 pg (27.0-33.0); MCV 84 fL (80-95); MPV 9.8 fL (8.0-11.0); Monocytes % 14.5; Neutrophils % 62.7; Platelet Count 258 10^3/uL (130-400); RBC 5.26 10^6/uL (4.36-5.78); RDW 13.2 % (11.8-14.1); RDW-SD 40.6 fL; WBC 6.14 10^3/uL (4.4-10.8)
[2023-04-23 21:04] LABS: Anion Gap 9.5 mmol/L (3-11); BUN 13 mg/dL (7-18); CO2 27.5 mmol/L (21.0-32.0); CREATININE 0.7 mg/dL (0.70-1.30); Calcium 9.2 mg/dL (8.5-10.1); Chloride 102 mmol/L (98-107); Estimated GFR 99.12 (mL/min/1.73m2); Glucose 92 mg/dL (74-106); Potassium 3.8 mmol/L (3.5-5.1); Sodium 139 mmol/L (136-145)
== END 2023-04-23 18:38 | disposition home or self-care (01) ==
LOC: LBN 18:37
PROVIDERS: PCP Nurse Practitioner Family; Visit Provider Nurse Practitioner Family
DX: U07.1 COVID-19 (principal); R05.8 Other specified cough
CPT/HCPCS: 80048; 85025

== ENCOUNTER 2023-06-16 01:06 | Outpatient (CLI) | payer OTHER, SELFPAY ==
[2023-06-16 12:58] LABS: Anion Gap 5.9 mmol/L (3-11); BUN 16 mg/dL (7-18); CO2 31.1 mmol/L (21.0-32.0); CREATININE 0.7 mg/dL (0.70-1.30); Calcium 9.4 mg/dL (8.5-10.1); Calculated LDL 84 mg/dL (<100); Chloride 102 mmol/L (98-107); Cholesterol 153 mg/dL (<200); Estimated GFR 99.12 (mL/min/1.73m2); Glucose 110 mg/dL (74-106); HDL Cholesterol 52 mg/dL (40-60); Potassium 4.2 mmol/L (3.5-5.1); Sodium 139 mmol/L (136-145); TSH (W/Ref FT4) 2.01 uIU/mL (0.36-3.74); Triglyceride 87 mg/dL (<150)
== END 2023-06-16 01:07 | disposition home or self-care (01) ==
LOC: LOS 01:12
PROVIDERS: PCP Nurse Practitioner Family; Visit Provider Family Medicine
DX: I10 Essential (primary) hypertension (principal); Z13.6 Encounter for screening for cardiovascular disorders; E03.9 Hypothyroidism, unspecified
CPT/HCPCS: 36415; 80048; 80061; 84443

== ENCOUNTER 2023-06-19 08:40 | Day surgery (SDC) | payer OTHER, SELFPAY ==
--- NOTE | 2023-06-18 15:23 | W.PM.DSUDISC ---
Date of service: 06/19/23 Time of Service: 10:35 Discharge Plan Disposition Patient Disposition: Home Condition: Good Discharge Details Reason For Visit: Screening colonoscopy Attending Provider: Orlin Anaya Primary Care Provider: Sb Willett Home Meds and New Rx's Prescriptions: Continued acetaminophen 500 mg capsule 1,000 mg PO Q6H PRN (Reason: fever) Qty: 60 0RF losartan 25 mg tablet 25 mg PO DAILY Qty: 90 3RF lidocaine 5 % adhesive patch,medicated 1 patch topical ONCE PRN levothyroxine 150 mcg tablet 150 mcg PO DAILY Qty: 90 3RF omeprazole 20 mg capsule,delayed release(DR/EC) 20 mg PO DAILY Qty: 90 3RF tamsulosin [Flomax] 0.4 mg capsule 0.8 mg PO QHS Qty: 180 3RF oxybutynin chloride 5 mg tablet extended release 24hr 5 mg PO DAILY Qty: 90 3RF ibuprofen 600 mg tablet 600 mg PO TID PRN (Reason: pain) Qty: 30 0RF Discontinued polyethylene glycol 3350 17 gram/dose powder 238 g PO ONCE Qty: 238 0RF Rx Instructions: take per colonoscopy instructions bisacodyl [Dulcolax (bisacodyl)] 5 mg tablet,delayed release (DR/EC) 5 mg PO ONCE Qty: 4 0RF Rx Instructions: take per colonoscopy instructions Discharge Instructions Instructions: Diverticulosis (GEN), Colorectal Polyps (GEN), Diverticulosis Diet (GEN) Additional Instructions: Ady, we were able to complete your colonoscopy today without any difficulty. I did find 4 polyps. I removed these all completely. Once I have the report from the polyp analysis, I will be in touch with my final recommendations for your next colonoscopy. If you have any questions at all in the meantime, please do not hesitate to call me at any point. 1. If tolerated, consume a soft, low fiber diet for 1-2 days. 2[address] Do not drive, drink alcohol, operate machinery, make critical decisions, or do activities that require coordination or balance for 24 hours. 3. Because air was put into your colon during the procedure, expelling air from your rectum (passing gas or farting) is normal. 4. You may not have a bowel movement for 1-3 days because of the colonoscopy prep. This is normal. 5. Go directly to the emergency room if you notice any of the following: Develop chills (warm to touch), or if you have a thermometer and your temperature is above 101 Difficulty breathing or difficultly swallowing Persistent vomiting Severe abdominal pain, other than gas cramps Severe chest pain Black, tarry stools Any bleeding ? exceeding one tablespoon 6. Call your physician if the site where your intravenous was started becomes red, swollen, painful, and warm to touch. 7. Your physician has reviewed your pre-procedure medications. Please continue to take those medications as previously ordered. You will be given specific information/education regarding any changes to your medications before leaving. Activity:: Activity as Tolerated Diet:: As Tolerated Discharge Orders Discharge Orders: Discharge Order (Routine); Ordered 06/18/23 Ordered By: Orlin Anaya DS: Diagnosis Discharge Diagnosis (1) Screen for colon cancer: Status: Acute Asessment and Plan: Follow-up on polypectomy results
--- NOTE | 2023-06-18 15:25 | COLE_ITS ---
Date of service: 06/19/23 Time of Service: 10:36 Colonoscopy Report Date of procedure: 06/19/23 Pre-op diagnosis general: Screening colonoscopy Post-op diagnosis procedure note: other (Colon polyps, diverticulosis) Procedure: Colonoscopy with polypectomy Surgeon: Orlin Anaya Anesthesia Type: General:No Airway Estimated blood loss (mL): 10 Pathology: other (3 polyps all measuring less than 0.5 cm at 75 cm from the anus, one 0.25 cm polyp at 55 cm) Complications: None Disposition: same day Indications: Ady is 72 years old, and is here for his next screening colonoscopy Prep: Miralax/Dulcolax Procedure Start Time: 09:56 Procedure End Time: 10:15 Retraction Time: 12 Findings: 3 polyps at 75 centers from the anus, measuring 0.25 cm, 0.5 cm, 0.5 cm; 1 polyp at 55 cm from the anus measuring 0.25 cm Procedure Description: After the induction of monitored anesthetic care, and with the patient in left lateral decubitus position, I began by performing an external anorectal exam.? Perineum and skin were normal, as was the anal verge.? There was no evidence of external hemorrhoids.? Next, I performed a digital rectal exam.? I did not appreciate any abnormal findings.? Next, I advanced a colonoscope into the rectal vault.? I performed retroflexion.? I this appeared normal.? Using insufflation, I then advanced the colonoscope beyond the rectal folds and into the sigmoid colon before advancing towards the cecum.? There was some sigmoid diverticulosis. The scope was noted to be in the cecum by identification of the ileocecal valve and appendiceal orifice.? I then began withdrawing the colonoscope using repeated irrigation as necessary for full evaluation of the colonic mucosa. Around 75 cm from the anus was a small group of 3 polyps. 2 of them measured 0.5 cm and were slightly pedunculated. The third measured 0.25 cm and was more sessile. All of these were removed with cold forceps without any significant bleeding. At 55 cm from the anal verge was another polyp. This was 0.25 cm. This was also sessile in nature. I removed this 1 with cold forceps as well. Once the scope was withdrawn to the level of the rectum, great care was taken to examine portions of the rectal folds.? Finally, the scope was wi thdrawn and the patient was brought to the same-day surgery recovery unit as the anesthetic wore off. ?The findings and instructions were shared with the patient prior to discharge. [place] Bowel Prep [place] Bowel Prep Right Colon: 3 Left Colon: 3 Transverse Colon: 3 Total Score: 9
[2023-06-19 08:42] VITALS: BP 138/84; PULSE 64; RESP 18; TEMP 36; O2SAT 95
[2023-06-19] MEDS: Lactated Ringers 1,000 ML 80 ML IV (09:11)
--- NOTE | 2023-06-19 09:17 | W.ANESPRE ---
General Info Date of Service Date Performed: 06/19/23 Height: 5 ft 8 in Weight: 96.1 kg Body Mass Index (BMI): 32.2 Surgical Procedure: Operation Date: 06/19/23 10:05 Proposed Procedure Side Surgeon mercedes Anaya MD Meds Allergies and Home Medications Allergies Allergy/AdvReac Type Severity Reaction Status Date / Time allopurinol AdvReac dizziness, Verified 06/18/23 10:52 GI upset Home Medication Medication Instructions Recorded acetaminophen 500 mg capsule 1,000 mg (2 x 500 mg) PO Q6H PRN 03/25/21 fever #60 caps levothyroxine 150 mcg tablet 150 mcg PO DAILY #90 tabs 07/02/22 omeprazole 20 mg capsule,delayed 20 mg PO DAILY #90 tab-caps 07/02/22 release ibuprofen 600 mg tablet 600 mg PO TID PRN pain #30 tabs 10/29/22 tamsulosin 0.4 mg capsule (Flomax) 0.8 mg (2 x 0.4 mg) PO QHS #180 01/08/23 caps losartan 25 mg tablet 25 mg PO DAILY #90 tabs 01/28/23 lidocaine 5 % topical patch 1 patch topical ONCE PRN 03/06/23 oxybutynin chloride 5 mg 5 mg PO DAILY #90 tabs 03/30/23 tablet,extended release 24 hr Current Visit Medications: Current Medications Generic Name Dose Route Start Last Admin Trade Name Freq PRN Reason Stop Dose Admin Hyoscyamine Sulfate 0.125 mg 06/18/23 15:26 Hyoscyamine 0.125 Mg Sl/Oral/Chew SL 07/18/23 15:25 DIRECTED PRN Ringer's Solution 1,000 mls @ 80 mls/hr 06/19/23 06:00 06/19/23 09:11 IV 07/18/23 23:59 80 mls/hr INFUSION KRISTOPHER Administration IV Miscellaneous Supplies 1 each 06/19/23 06:00 Iv Access IV 07/18/23 23:59 DIRECTED KRISTOPHER Ondansetron HCl 4 mg 06/18/23 15:26 Ondansetron 4 Mg/2 Ml Vial IVP 07/18/23 15:25 Q4H PRN PRN Nausea / Vomiting Sodium Chloride 0 ml 06/19/23 06:00 Normal Saline Flush 10 Ml Syr IV 07/18/23 23:59 PRN PRN Sodium Chloride 0 ml 06/19/23 06:00 Normal Saline 10 Ml Vial IJ 07/18/23 23:59 DIRECTED PRN Sterile Water 0 ml 06/19/23 06:00 Water,Injection,Sterile 10 Ml Vial IJ 07/18/23 23:59 DIRECTED PRN PFSH Active Problems Active Problems: Problem Status Onset Code Screen for colon cancer Z12.11 Essential hypertension I10 Erectile disorder, acquired, generalized, moderate F52.21 Hypothyroidism E03.9 History of gout Z87.39 Osteoarthritis of hands, bilateral M19.041, M19.042 BPH w urinary obs/LUTS N40.1, N13.8 GERD (gastroesophageal reflux disease) K21.9 Medical History Medical History Finger amputation, traumatic Work accident. Diverticula of colon Adenomatous polyps Osteophyte L foot, excision Hx of clark R hands Trigger finger (acquired) Surgically repaired in 2018. Septic prepatellar bursitis of right knee Hypogonadism, testicular History of colonic polyps Surgical History Surgical History History of colonoscopy History of arthroscopic knee surgery leftl History of surgical amputation of finger of left hand Ring finger Tobacco Smoking/Tobacco Use Status: Former Tobacco Use Passive smoking exposure: Yes Second hand exposure: Yes Alcohol Alcohol Intake: current Alcohol intake frequency: a few times a month Alcohol type: hard liquor Substance Use Substance use: Never Substance use type: does not use Vital Signs and Lab Results Vital Signs Most Recent Vital Signs in EMR: Most Recent Vital Signs Temp Pulse Resp BP Pulse Ox 36 C L 64 18 138/84 95 06/19/23 08:42 06/19/23 08:42 06/19/23 08:42 06/19/23 08:42 06/19/23 08:42 Lab Results Blood Type / Crossmatch: No Data to Display Complete Blood Count: No Data to Display Complete Metabolic Panel: Sodium 139 mmol/L (136-145) 06/16/23 09:11 Potassium 4.2 mmol/L (3.5-5.1) 06/16/23 09:11 Chloride 102 mmol/L (98-107) 06/16/23 09:11 Carbon Dioxide 31.1 mmol/L (21.0-32.0) 06/16/23 09:11 BUN 16 mg/dL (7-18) 06/16/23 09:11 Creatinine 0.7 mg/dL (0.70-1.30) 06/16/23 09:11 Est GFR (CKD-EPI 2020) 99.12 (mL/min/1.73m2) 06/16/23 09:11 Calcium 9.4 mg/dL (8.5-10.1) 06/16/23 09:11 Glucose 110 mg/dL (74-106) H 06/16/23 09:11 Liver Function Panel: No Data to Display Coagulation Panel: No Data to Display Cardiac Panel: No Data to Display Arterial Blood Gas: No Data to Display Venous Blood Gas: No Data to Display Pancreas Panel: No Data to Display Thyroid Panel: Thyroid Stimulating Hormone (TSH) 2.01 uIU/mL (0.36-3.74) 06/16/23 09:11 Infectious Disease: No Data to Display Blood Cultures: No Data to Display Toxicology Panel: No Data to Display Anesthesia Assessment and Plan Anesthesia History Personal History: No History of Anesthesia Complications Family History: No Family History of Anesthesia Complications Exercise Tolerance Exercise Tolerance: Metabolic Equivalents>4 Pertinent Negatives Pertinent Negatives: No Symptoms of GERD, No Major Cardiovascular Symptoms or Complaints and No Major Pulmonary Symptoms or Complaints Cardiac & Pulmonary Exam Cardiac Exam: Normal S1/S2 Heart Sounds Pulmonary Exam: Clear Bilateral Breath Sounds Implantable Cardiac Device Does patient have a Pacemaker or an ICD?: No Airway Exam Known Difficult Airway: No Mallampati Class: 3 Mouth Opening: Normal (> 3cm) Thyromental Distance: Greater than 3 cm Neck Range of Motion: Full ROM Neck Circumference: Thick Teeth Condition: Normal Dentition (Left bottom tooth broke off yesterday) ASA Classification ASA Score: ASA 2 Emergency Case?: No NPO Status NPO Status: NPO Clears >2 hours, Solids >8 hours Anesthesia Plan Resuscitation Status: Full Code Anesthesia Technique: General Anesthesia Airway Planned: Natural Airway Monitors Used: Standard Monitors
[2023-06-19 09:19] VITALS: BMI 32.2
--- NOTE | 2023-06-19 10:10 | BOWEL_PTH ---
PATIENT: John Perry I LOC: [facility] U#:[id number] AGE/SX: 72/M ROOM: RE06/19/[address]: Orlin Anaya MD : 1950 BED: DIS: 06/19/2023 SPEC #: [id number] RECD: 06/19/23 11:00 STATUS: ALEC RE #: [id number] KAITLIN: 06/19/23 10:[address]: Orlin Anaya DEPT: Surgical Specimen RECD BY: Raegan Lopez ENTERED: 06/19/23 11:01 SP TYPE: Bowel OTHR DR: Sb Willett, LOLIS Tissues: 1 - BIOPSY BOWEL 2 - BIOPSY BOWEL Procedures: GROSS AND MICRO LEVEL 4 Comments: [id number]
[2023-06-19 10:29] VITALS: BP 135/82; PULSE 68; RESP 16; TEMP 36.4; O2SAT 97
[2023-06-19 11:12] VITALS: BP 152/86; PULSE 60; RESP 16; TEMP 36.3; O2SAT 96
--- NOTE | 2023-06-19 11:38 | W.ANESPOSTOP ---
Postoperative Evaluation Date, Time and Location Date Performed: 06/19/23 Time Performed: 11:30 Patient Location: Day Surgery Unit Vital Signs Most Recent Imported Vital Signs: Most Recent Vital Signs Temp Pulse Resp BP Pulse Ox 36.3 C L 60 16 152/86 H 96 06/19/23 11:12 06/19/23 11:12 06/19/23 11:12 06/19/23 11:12 06/19/23 11:12 Pain Score Most Recent Pain Score: Most Recent Pain Score Pain Level 0 06/19/23 11:12 Assessment Mental Status: Awake (Alert & Oriented to Patient Baseline) Airway and Respiratory Function: Patent airway with normal (patient baseline) respiratory exam Cardiovascular Function: Hemodynamically Stable Hydration Status: Adequately Hydrated Nausea & Vomiting: No Nausea or Vomiting Pain: Pt. Denies Any Pain Peripheral Nerve Block: Patient did not receive a nerve block
== END 2023-06-19 11:45 | disposition home or self-care (01) ==
LOC: SUR 08:41
PROVIDERS: PCP Nurse Practitioner Family; Visit Provider Surgery
PROC: 0DJD8ZZ Inspection of Lower Intestinal Tract, Via Natural or Artificial Opening Endoscopic (ICD-10-PCS; CPT 45378; principal; 2023-06-19 10:00)
DX: Z12.11 Encounter for screening for malignant neoplasm of colon (principal); Z86.010 Personal history of colon polyps; D12.4 Benign neoplasm of descending colon; K57.30 Diverticulosis of large intestine without perforation or abscess without bleeding; I10 Essential (primary) hypertension; D12.5 Benign neoplasm of sigmoid colon
CPT/HCPCS: 45380; 88305

== ENCOUNTER → 2023-09-01 01:00 | Outpatient (CLI) | payer OTHER, SELFPAY ==
--- NOTE | 2023-09-01 09:08 | DI.RAD_ITS ---
Exam(s) XR FOOT RT COMPLETE EXAM: XR FOOT RT COMPLETE CLINICAL HISTORY: Rt painful hammer toes,m79.671.m20.41. TECHNIQUE: 2D digital imaging was performed. COMPARISON: CR XR FOOT LT COMPLETE from 09/01/2023 FINDINGS: 3 views No evidence of fracture or diastasis of the Lisfranc joint. There is some degenerative change in the great toe metatarsophalangeal joint, more so laterally than medial and significantly less than is ev ident in the same joint of the opposite-left foot. Other MTP joints appear unremarkable. No pes lary nus. No inferior calcaneal spur. Vascular calcification also noted in this foot. IMPRESSION: Degenerative changes in the great toe metatarsophalangeal joint but less than is evident on the oppos ite side DATA REPOSITORY: RADIATION DOSE DELIVERED:
--- NOTE | 2023-09-01 09:08 | DI.RAD_ITS ---
Exam(s) XR FOOT LT COMPLETE EXAM: XR FOOT LT COMPLETE CLINICAL HISTORY: Lt painful hammer toes,m79.672,m20.42. TECHNIQUE: 2D digital imaging was performed. COMPARISON: No exams were available for comparison FINDINGS: 3 views No evidence of acute fracture or diastasis of the Lisfranc joint. There are advanced degenerative ch anges at the great toe metatarsophalangeal joint. Other MTP joints appear unremarkable as do the met atarsal heads. Vascular calcifications noted between the 1st and 2nd metatarsals. Also in the more proximal arteries of the foot including dorsalis pedis and plantar vessels. 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 DATA REPOSITORY: RADIATION DOSE DELIVERED:
== END ==
PROVIDERS: PCP Nurse Practitioner Family; Visit Provider Podiatrist
DX: M20.42 Other hammer toe(s) (acquired), left foot (principal); M79.672 Pain in left foot; M20.41 Other hammer toe(s) (acquired), right foot; M79.671 Pain in right foot
CPT/HCPCS: 73630

== ENCOUNTER → 2023-11-05 02:40 | Outpatient (CLI) | payer OTHER, SELFPAY ==
--- NOTE | 2023-11-05 08:00 | DI.RAD_ITS ---
Exam(s) XR KNEE LT 3V AP,LAT,FAN EXAM: XR KNEE LT 3V AP,LAT,FAN CLINICAL HISTORY: Left knee pain,m25.562. TECHNIQUE: 2D digital imaging was performed. Three views. COMPARISON: CR XR WRIST RT COMPLETE from 10/29/2022 FINDINGS: BONES: No acute fracture is present. No bony destructive lesion is seen. JOINTS: There is severe narrowing of the medial femoral tibial joint space, with a [id number] appea geo. Periarticular spurring present. Varus angulation. Prominent spurring at the articular aspec t of the patella. A large effusion is seen. SOFT TISSUE: Vascular calcifications. IMPRESSION: Severe degenerative changes of the medial femoral tibial joint. DATA REPOSITORY: RADIATION DOSE DELIVERED:
== END ==
PROVIDERS: PCP Nurse Practitioner Family; Visit Provider Nurse Practitioner Family
DX: M25.562 Pain in left knee (principal); M17.12 Unilateral primary osteoarthritis, left knee; G89.29 Other chronic pain
CPT/HCPCS: 73562

== ENCOUNTER 2024-05-24 11:29 | Outpatient (CLI) | payer OTHER, SELFPAY ==
[2024-05-24 18:52] LABS: PSA, Diagnostic 3.4 ng/mL (<=6.5)
== END 2024-05-24 11:30 ==
LOC: LBO 11:29
PROVIDERS: PCP Nurse Practitioner Family; Visit Provider Nurse Practitioner Gerontology
DX: N40.1 Benign prostatic hyperplasia with lower urinary tract symptoms (principal); N13.8 Other obstructive and reflux uropathy; R39.9 Unspecified symptoms and signs involving the genitourinary system; R35.0 Frequency of micturition
CPT/HCPCS: 36415; 84153

== ENCOUNTER 2024-06-27 09:25 | Outpatient (CLI) | payer OTHER, SELFPAY ==
[2024-06-27 12:32] LABS: Anion Gap 7.3 mmol/L (3-11); BUN 17 mg/dL (7-18); CO2 27.7 mmol/L (21.0-32.0); CREATININE 0.8 mg/dL (0.70-1.30); Calcium 8.8 mg/dL (8.5-10.1); Calculated LDL 72 mg/dL (<100); Chloride 105 mmol/L (98-107); Cholesterol 161 mg/dL (<200); Estimated GFR 94.62 (mL/min/1.73m2); Glucose 114 mg/dL (74-106); HDL Cholesterol 52 mg/dL (40-60); Sodium 140 mmol/L (136-145); TSH (W/Ref FT4) 24.93 uIU/mL (0.36-3.74); Triglyceride 187 mg/dL (<150)
[2024-06-27 13:41] LABS: FREE T4 0.92 ng/dL (0.76-1.46)
== END 2024-06-27 09:26 | disposition home or self-care (01) ==
LOC: LOS 09:25
PROVIDERS: PCP Nurse Practitioner Family; Referring Provider Nurse Practitioner Family; Visit Provider Nurse Practitioner Family
DX: E03.9 Hypothyroidism, unspecified (principal); Z13.6 Encounter for screening for cardiovascular disorders; Z13.1 Encounter for screening for diabetes mellitus
CPT/HCPCS: 36415; 80048; 80061; 83036; 84439; 84443

== ENCOUNTER 2024-09-19 02:03 | Outpatient (CLI) | payer OTHER, SELFPAY ==
[2024-09-19 08:04] LABS: TSH (W/Ref FT4) 38.71 uIU/mL (0.36-3.74)
[2024-09-19 08:20] LABS: FREE T4 1.03 ng/dL (0.76-1.46)
== END 2024-09-19 02:04 | disposition home or self-care (01) ==
PROVIDERS: PCP Nurse Practitioner Family; Visit Provider Nurse Practitioner Family
DX: E03.9 Hypothyroidism, unspecified (principal)
CPT/HCPCS: 36415; 84439; 84443

== ENCOUNTER 2025-06-28 12:01 | Outpatient (CLI) | payer OTHER, SELFPAY ==
[2025-06-28 14:26] LABS: Cholesterol 157 mg/dL (<200); HDL Cholesterol 52 mg/dL (>40)
[2025-06-28 14:30] LABS: TSH (W/Ref FT4) 17.29 uIU/mL (0.55-4.78)
[2025-06-28 22:16] LABS: PSA, Screening 2.6 ng/mL (<=6.5)
== END 2025-06-28 12:02 | disposition home or self-care (01) ==
LOC: LBO 12:01
PROVIDERS: Nurse Practitioner Gerontology; PCP Nurse Practitioner Family; Visit Provider Nurse Practitioner Family
DX: E03.9 Hypothyroidism, unspecified (principal); Z13.6 Encounter for screening for cardiovascular disorders; R39.9 Unspecified symptoms and signs involving the genitourinary system
CPT/HCPCS: 36415; 80061; 84153; 84439; 84443

== ENCOUNTER → 2025-07-03 10:35 | Outpatient (CLI) | payer OTHER, SELFPAY ==
--- NOTE | 2025-07-03 12:51 | DI.RAD_ITS ---
Exam(s) XR WRIST LT COMPLETE EXAM: XR WRIST LT COMPLETE CLINICAL HISTORY: Hard mass of wrist,r22.30. TECHNIQUE: 2D digital imaging was performed. COMPARISON: No exams were available for comparison FINDINGS: 3 views No evidence of fracture nor carpal dislocation. Soft tissue calcification noted on the medial aspect of the wrist related to the triangular fibrocartilage. The ulnar styloid is intact. Scaphoid and scapholunate distance are normal. First carpometacarpal joint appears unremarkable. There is, however, linear calcific lucency on the lateral aspect of the wrist which may be vascular or related to tendon at this level. There is mild positive ulnar variance. Mild degenerative changes in the radiocarpal joint. On the volar aspect of the wrist there is a 4 by 2 mm calcific density noted which appears volar to the proximal carpal row. IMPRESSION: Multilevel findings as above. No soft tissue mass immediately subjacent to the dorsally placed skin marker If clinically indicated follow-up MRI can be performed. DATA REPOSITORY: RADIATION DOSE DELIVERED:
== END ==
LOC: DI 10:35
PROVIDERS: PCP Nurse Practitioner Family; Visit Provider Nurse Practitioner Family
DX: M21.73 Unequal limb length (acquired), ulna and radius (principal); M19.032 Primary osteoarthritis, left wrist
CPT/HCPCS: 73110